=== PATIENT | female | born 1995 | race Two or more races ===

== ENCOUNTER 2024-11-23 22:00 | Emergency (ER) | payer MEDICAID, OTHER ==
[~2024-11-23] VITALS: Ht 154.9 cm; Wt 63.6 kg
[2024-11-23] MEDS: SODIUM CHLORIDE 0.9% 1,000 ML IV ONE (00:10)
[2024-11-23] MEDS: ONDANSETRON HCL 4 MG/2 ML VIAL IV ONE (01:20)
--- NOTE | 2024-11-23 23:09 | ED.PDOC ---
History of Present Illness HPI Comments HPI: Poor Historian. 29-year-old female otherwise healthy complains of five day history of nausea and vomiting nonbilious nonbloody. She had a total of three episodes of vomiting. Patient complains of fever as well T-max of a 103.5. She took some antipyretics at home. Patient states that when she coughs she feels generalized body soreness and aches. Denies any sick contacts. Denies any recent traveling outside the country. Past Medical History: Denies any Past Surgical History: Denies any Was: Temperature 99.5 F, pulse rate of 112, respiratory rate of 18, blood pressure 126/85, pulse ox 98% room air REVIEW OF SYSTEMS: CONSTITUTIONAL: Denies acute: diaphoresis, chills, HEAD: Denies acute: headache, photophobia Eyes: Denies acute: Double vision, vision loss, eye pain, eye discharge. EARS: Denies acute: tinnitus, hearing loss, ear discharge, ear pain, THROAT: Denies acute: sore throat, swelling, difficulty swallowing , pain with swallowing, change in voice. NECK: Denies acute: neck pain, neck swelling, stiff neck. HEART: Denies acute : chest pain, palpitations, LUNGS: Denies acute: SOB, wheezing, cough, hemoptysis ABDOMEN: Denies acute: abdominal pain, , diarrhea, melena , hematemesis, hematochezia SKIN: Denies acute: rash, redness, lesions, itchiness. EXTREMITIES: Denies acute: calf pain, numbness, tingling, weakness, denies pain in extremity. Denies acute: Low back pain. Neuro: Denies acute: focal neurological deficit, motor or sensory focal neurological deficit, tremors, seizure like activity, confusion, dizziness, change in mental status, loss of bowel or bladder function, cauda equina like symptoms. : Denies acute: dysuria, hematuria, flank pain, increase in urinary frequency. PSYCH: Denies acute: hallucination, suicidal ideation, homicidal ideation. FEMALE: Denies acute: abnormal vaginal bleeding, foul odor, unusual discharge. PHYSICAL EXAM: General: ----mild----acute distress, awake and alert. Head: normocephalic, atraumatic. Neck: supple, trachea is midline, no swelling. Throat: Normal phonation. No erythema, no obstruction, no swelling Eyes:, no erythema, no purulent discharge, no proptosis, no icterus. Heart: regular rate, regular rhythm, no significant murmur appreciated. Lungs: no apparent respiratory distress, Able to speak in full sentences. No wheezing, no rhonchi, no crackles. No stridors Clear to auscultation bilaterally. Abdomen: non tender to palpation, non distended, soft, no guarding, no rebound, + bowel sounds. Neuro: Awake, Alert, oriented to name, self, situation, follows commands GCS=15. Speech is normal. Skin: no petechia, no purpura, no cyanosis, non-pale, not jaundice. Lower extremities: --no - Pitting edema no deformity, no focal swelling, no calf TTP. Makes eye contact. moves all four extremities. Face: no apparent facial droop. Ambulating in the ED independently. No nuchal rigidity, Kernig's sign, Brudzinski's sign, no meningeal signs. ED COURSE: DISCLAIMER: This medical document was created using an electronic medical record system with voice recognition software and computerized dictation system. Although this document has been carefully reviewed, there might still be some phonetic and typographical errors. Occasional wrong-word or "sound-alike" substitutions may have occurred due to the inherent limitations of voice recognition software. These areas are purely typographical due to imperfections of the software programs and do not reflect any compromise in the patient's medical care. Please read the chart carefully and recognize, using context, where these substitutions have occurred. Chief Complaint: Flu like Time Seen by MD: 22:15 Was a procedure done? Was a procedure done?: No X-Ray, Labs, Meds, VS Vital Signs Date Time Temp Pulse Resp B/P (MAP) Pulse Ox O2 Delivery O2 Flow Rate FiO2 11/24/24 00:26 98.6 106 18 110/74 (86) 100 98.6 11/23/24 22:15 99.5 112 18 126/85 (99) 98 99.5 Lab Test 11/23/24 22:56 11/23/24 22:50 11/23/24 22:45 Range/Units White Blood Count 8.6 4.4-10.8 10^3/uL Red Blood Count 4.80 4.0-5.20 10^6/uL Hemoglobin 14.5 12.2-16.2 g/dL Hematocrit 42.0 36.0-46.0 % Mean Corpuscular Volume 87.5 80.0-100.0 fL Mean Corpuscular Hemoglobin 30.3 28.0-32.0 pg Mean Corpuscular Hemoglobin Concent 34.6 32.0-36.0 g/dL Red Cell Distribution Width 13.0 11.8-14.3 % Platelet Count 272 140-450 10^3/uL Mean Platelet Volume 9.3 6.9-10.8 fL Neutrophils (%) (Auto) 79.1 37.0-80.0 % Lymphocytes (%) (Auto) 13.7 10.0-50.0 % Monocytes (%) (Auto) 6.7 0.0-12.0 % Eosinophils (%) (Auto) 0.2 0.0-7.0 % Basophils (%) (Auto) 0.3 0.0-2.0 % Neutrophils # (Auto) 6.8 1.6-8.6 10 ^3/uL Lymphocytes # (Auto) 1.2 0.4-5.4 10 ^3/uL Monocytes # (Auto) 0.6 0-1.3 10 ^3/uL Eosinophils # (Auto) 0 0-0.8 10 ^3/uL Basophils # (Auto) 0 0-0.2 10 ^3/uL Nucleated Red Blood Cells 0.0 % Sodium Level 138 136-145 mmol/L Potassium Level 3.1 L 3.5-5.1 mmol/L Chloride Level 101 98-107 mmol/L Carbon Dioxide Level 28 20-31 mmol/L Anion Gap 9 5-15 Blood Urea Nitrogen 9 9-23 mg/dL Creatinine 0.81 0.550-1.02 mg/dL Glomerular Filtration Rate Calc 99 >90 mL/min BUN/Creatinine Ratio 11.1 10.0-20.0 Serum Glucose 126 H 74-106 mg/dL Lactic Acid Level 1.2 0.4-2.0 mmol/L Calcium Level 9.6 8.7-10.4 mg/dL Total Bilirubin 0.5 0.2-1.0 mg/dL Aspartate Amino Transferase (AST) 33 13-40 U/L Alanine Aminotransferase (ALT) 30 7-40 U/L Alkaline Phosphatase 67 46-116 U/L Total Protein 8.3 H 5.7-8.2 g/dL Albumin 5.2 H 3.2-4.8 g/dL Monoscreen Negative Urine Color Yellow Yellow Urine Clarity Turbid H Clear Urine pH 6.0 5.0-9.0 Urine Specific [place] 1.026 1.001-1.035 Urine Protein 1+ H Negative Urine Ketones Trace Negative Urine Blood Negative Negative /uL Urine Nitrite Negative Negative Urine Bilirubin Negative Negative Urine Urobilinogen 2 H Negative mg/dL Urine Leukocyte Esterase Trace Negative /uL Urine RBC 2 0 - 4 /hpf Urine Microscopic WBC 7 H 0-5 /HPF Urine Squamous Epithelial Cells Few <5 /hpf Urine Bacteria Few H None Seen /hpf Urine Mucus Few None Seen Urine Glucose Normal Normal mg/dL Influenza Type A Antigen Negative Negative Influenza Type B Antigen Negative Negative SARS-CoV-2 Antigen (Rapid) Negative NEGATIVE Current Medications Medications (Trade) Dose Ordered Sig/Romana Route Start Time Stop Time Status Last Admin Sodium Chloride 1,000 ml @ 1,000 mls/hr Q1H ONCE IV 11/23/24 22:45 11/23/24 23:44 DC 11/23/24 00:10 Ceftriaxone Sodium 50 ml @ 100 mls/hr ONCE ONCE IV 11/23/24 23:45 11/24/24 00:14 DC 11/24/24 01:03 [place] [address] Ph: [phone] DIAGNOSTIC IMAGING Diagnostic Imaging Report : [id number] Signed PATIENT: JOHNNY AWAN ACCT: [id number] UNIT: [id number] : 1995 LOC: ER ROOM / BED: / AGE / SEX: 29 / F ADM STATUS: REG ER SERVICE [id number] ORDERING PHYSICIAN: DERREK ROBERTO DO PROCEDURE(s): CXRP - CHEST PORTABLE REASON: cough, fever, n/v/ ORDER NUMBER(s): [id number], ACCESSION NUMBER(s): [id number] CHEST RADIOGRAPH Indication: cough, fever, n/v/ Technique: Single frontal view of the chest was obtained COMPARISON: None FINDINGS: Lines and Tubes: None Lungs: Clear Pleura: No effusion. No pneumothorax. Cardiomediastinal contours: Unremarkable Bones: Unremarkable IMPRESSION: 1. No acute disease. ATED BY: JD JOHNSON MD DICTATED DATE/TIME: 11/23/242320 SIGNED BY: JD JOHNSON MD SIGNED DATE/TIME: 11/23/242320 CC: Time of 1ST Reevaluation: 22:15 Reevaluation 1ST: Unchanged Patient Education/Counseling: Need For Follow Up Family Education/Counseling: No Family Present SEPSIS Sepsis Screen Date sepsis recognized/suspect: Nov 23, 2024 Time Sepsis recognized/suspect: 2214 Recent Procedure: No On Antibiotic Therapy: No Respiratory Rate >20: No Heart Rate >90: No Temp<36 C (96.8 F) or >38.3 C: No SBP <90 or MAP <65 mmHG: No New Acute Mental Status Change: No Is the patient on CPAP, BIPAP,: No Physician Orders Stock Handler Floorperson (11/23/24 ) Chest Portable (11/23/24 22:44) Blood Culture (11/23/24 22:44) Vital Signs Date Time Temp Pulse Resp B/P (MAP) Pulse Ox O2 Delivery O2 Flow Rate FiO2 11/24/24 00:26 98.6 106 18 110/74 (86) 100 98.6 11/23/24 22:15 99.5 112 18 126/85 (99) 98 99.5 Laboratory Tests Test 11/23/24 22:56 Lactic Acid Level 1.2 mmol/L (0.4-2.0) White Blood Count 8.6 10^3/uL (4.4-10.8) Medications Medications Dose Ordered Sig/Romana Route Start Time Stop Time Status Last Admin Dose Admin Ceftriaxone Sodium 50 ml @ 100 mls/hr ONCE ONCE IV 11/23/24 23:45 11/24/24 00:14 DC 11/24/24 01:03 Sodium Chloride 1,000 ml @ 1,000 mls/hr Q1H ONCE IV 11/23/24 22:45 11/23/24 23:44 DC 11/23/24 00:10 Departure 1 Departure Time of Disposition: 23:45 Impression: Primary Impression: Fever in adult Additional Impressions: UTI (urinary tract infection) Hypokalemia Nausea and vomiting Disposition: HOME / SELF CARE / HOMELESS Condition: Stable Additional Instructions: Additional instructions: You MUST follow-up with your primary care/family doctor in 1 to 2 days. If you are unable to see your primary care/family doctor, please return to our emergency room for re-assessment and re-evaluation in 1 to 2 days. Return to the emergency room here in our facility or to the nearest ER [facility] if your symptoms change or worsen. Adequate fluid hydration. e-Prescriptions Nitrofurantoin Monohydrate Mac (Macrobid) 100 Mg Cap 100 MG PO BID for 7 Days, #14 CAP Prov: DERREK ROBERTO DO 11/24/24 Ondansetron Odt 4MG Tab (ZOFRAN PO) 4 Mg Tb 4 MG PO Q8HPRN PRN for 3 Days, #9 TAB ODT TAB-DISSOLVE IN MOUTH, THEN SWALLOW Prov: DERREK ROBERTO DO 11/24/24 Discharged With: Self, Spouse Critical Care Note Critical Care Time?: No I personally scribed for DERREK ROBERTO DO ([email or web address]) on 11/24/24 at 01:41. Electronically submitted by Martin Do ([email or web address]). DERREK ROBERTO DO Nov 23, 2024 23:09
--- NOTE | 2024-11-23 23:24 | DVH ---
CHEST RADIOGRAPH Indication: cough, fever, n/v/ Technique: Single frontal view of the chest was obtained COMPARISON: None FINDINGS: Lines and Tubes: None Lungs: Clear Pleura: No effusion. No pneumothorax. Cardiomediastinal contours: Unremarkable Bones: Unremarkable IMPRESSION: 1. No acute disease.
[2024-11-23 23:29] LABS: Hematocrit 42.0 % (36.0-46.0); Hemoglobin 14.5 g/dL (12.2-16.2); Mean Corpuscular Hemoglobin 30.3 pg (28.0-32.0); Mean Corpuscular Volume 87.5 fL (80.0-100.0); Nucleated Red Blood Cells % 0.0 %
[2024-11-23 23:29] LABS: Urine Protein, UAD 1+ (Negative)
[2024-11-23 23:39] LABS: Alanine Aminotransferase 30 U/L (7-40); Alkaline Phosphatase 67 U/L (46-116); Anion Gap 9 (5-15); BUN/Creatinine Ratio 11.1 (10.0-20.0); Blood Urea Nitrogen 9 mg/dL (9-23); Calcium 9.6 mg/dL (8.7-10.4); Carbon Dioxide 28 mmol/L (20-31); Chloride 101 mmol/L (98-107); Sodium 138 mmol/L (136-145)
[2024-11-23 23:40] LABS: Bilirubin, Total 0.5 mg/dL (0.2-1.0)
[2024-11-23 23:44] LABS: COVID19 ANTIGEN SOFIA FIA NEGATIVE (NEGATIVE)
[2024-11-23 23:55] LABS: Albumin 5.2 g/dL (3.2-4.8); Glucose 126 mg/dL (74-106); Potassium 3.1 mmol/L (3.5-5.1); Total Protein 8.3 g/dL (5.7-8.2)
[2024-11-24 00:26] VITALS: BP 110/74; PULSE 106; RESP 18; TEMP 98.6
[2024-11-24 00:30] VITALS: O2SAT 98
[2024-11-24] MEDS ORDERED: NITR-87 PO (00:58)
[2024-11-24] MEDS ORDERED: ZOFR4T PO (00:58)
[2024-11-24] MEDS: cefTRIAXone 1GM/50ML D5W 50 ML IV ONE (01:03)
[2024-11-24] MEDS: POTASSIUM CHL 20 Meq TABLET PO ONE (01:49)
== END 2024-11-24 02:31 | disposition home or self-care (01) ==
LOC: ER 22:00
DX: N39.0 Urinary tract infection, site not specified (principal); E87.6 Hypokalemia; R11.2 Nausea with vomiting, unspecified; R50.9 Fever, unspecified; Z20.822 Contact with and (suspected) exposure to COVID-19
CPT/HCPCS: 36415; 71045; 80053; 81001; 83605; 85025; 86308; 87040; 87426; 87804; 96361; 96365; 96375; 99284; J0696; J2405; J7030; 96374